=== PATIENT | female | born 1940 | race African-American/Black ===

== ENCOUNTER 2017-12-22 10:54 | Emergency (ER) | payer BC, MEDICAID ==
[~2017-12-22] VITALS: Ht 165.1 cm; Wt 112.0 kg
[~2017-12-22 10:54] MED LIST: AMLO5TAB88 PO; ATOR10TA PO; Atenolol PO
[2017-12-22] MEDS ORDERED: ACETAMINOPHEN 325MG TABLET PO ONE (12:15)
[2017-12-22 14:29] LABS: CLARITY URINE CLEAR (CLEAR); COLOR URINE YELLOW (YELLOW); KETONES URINE NEGATIVE (NEGATIVE); LEUKOCYTE ESTERASE URINE NEGATIVE (NEGATIVE); NITRITE URINE NEGATIVE (NEGATIVE); OCCULT BLOOD URINE NEGATIVE (NEGATIVE); PH URINE 6.5 (4.5-8.0); PROTEIN URINE TRACE (NEGATIVE); SPECIFIC GRAVITY URINE 1.015 (1.005-1.030)
[2017-12-22 15:02] LABS: *AMPHETAMINES SCREEN URINE NEGATIVE (NEGATIVE); *BARBITURATES SCREEN URINE NEGATIVE (NEGATIVE); *BENZODIAZEPINES SCREEN URINE NEGATIVE (NEGATIVE); *COCAINE SCREEN URINE NEGATIVE (NEGATIVE)
[2017-12-22 15:03] LABS: CANNABINOID URINE SCREEN NEGATIVE (NEGATIVE); METHADONE URINE SCREEN NEGATIVE (NEGATIVE); OPIATES URINE SCREEN NEGATIVE (NEGATIVE); PHENCYCLIDINE URINE SCREEN NEGATIVE (NEGATIVE)
[2017-12-22 18:09] VITALS: BP 165/90
== END 2017-12-22 18:11 | disposition home or self-care (01) ==
LOC: ER 10:54
DX: M25.551 Pain in right hip (principal); R20.0 Anesthesia of skin; R80.9 Proteinuria, unspecified; R82.71 Bacteriuria; G89.29 Other chronic pain; M54.5 Low back pain; M47.896 Other spondylosis, lumbar region; M13.851 Other specified arthritis, right hip; N17.0 Acute kidney failure with tubular necrosis; E86.0 Dehydration; R01.1 Cardiac murmur, unspecified; E66.01 Morbid (severe) obesity due to excess calories; Z68.41 Body mass index [BMI] 40.0-44.9, adult; I10 Essential (primary) hypertension; Z98.890 Other specified postprocedural states; Z88.0 Allergy status to penicillin; Z79.899 Other long term (current) drug therapy
CPT/HCPCS: 72100; 73502; 80305; 81003; 99285